=== PATIENT | male | born 1960 | race Caucasian/White ===

== ENCOUNTER 2016-08-07 03:33 | Emergency (ER) | payer MEDICAID, OTHER ==
[~2016-08-07] VITALS: Ht 177.8 cm; Wt 100.0 kg
[~2016-08-07 03:33] MED LIST: DILT60TA33 PO; METO25 PO; SIMV20 PO; WARF6 PO
[2016-08-07 03:35] VITALS: BP 146/83; PULSE 76; RESP 16; TEMP 98.5; O2SAT 100
[2016-08-07] MEDS ORDERED: DILT120T PO (04:00)
[2016-08-07] MEDS ORDERED: ATOR20TA15 PO (04:00)
[2016-08-07] MEDS ORDERED: METO25TA3 PO (04:00)
[2016-08-07] MEDS ORDERED: COUM5TAB PO (04:00)
[2016-08-07] MEDS ORDERED: KETOROLAC TROMETHAMINE 60 MG/2 ML (IM) VIAL IM ONE (04:30)
[2016-08-07] MEDS ORDERED: ORPHENADRINE INJ 60 MG/2 ML AMP IM ONE (04:30)
[2016-08-07] MEDS ORDERED: CYCL1TAB29 PO (04:56)
--- NOTE | 2016-08-07 04:57 | PD ---
HPI Chief Complaint: Back/ Neck Pain or Injury Time Seen by Provider: 04:10 Travel History International Travel<30 days: No Contact w/Intl Traveler<30days: No Traveled to known affect area: No History of Present Illness HPI Patient is a 56-year-old male presenting to the emergency department for evaluation of back pain. Patient states his pain started 2 days ago, he denies any injury or trauma. He states it tightened up while at work. Patient has not taken anything to alleviate the pain, he reports his pain as a 710 and states it's tight and sore. Patient has a history of hyperlipidemia, atrial fibrillation, hypertension. He denies any weakness or numbness in his extremities, no bladder or bowel incontinence, no saddle paresthesia. Patient' s is at bedside. PFSH Past Medical History Hx Anticoagulant Therapy: Yes (warfarin) Atrial Fibrillation: Yes Blood Disorders: No Heart Rhythm Problems: No Cancer: No Cardiac Catheterization: No High Cholesterol: Yes Chest Pain: Yes Congestive Heart Failure: No Cerebrovascular Accident: Yes Diabetes: No Endocrine: No Gastrointestinal Disorders: Yes (CHRONIC CONSTIPATION) Genitourinary: No Hypertension: Yes Immune Disorder: No Kidney Stones: Yes Musculoskeletal: No Neurologic: No Psychiatric: No Reproductive: No Respiratory: No Myocardial Infarction: No Past Surgical History Surgical History: No Previous Surgery AICD: No Arteriovenous Shunt: No Coronary Artery Bypass Graft: No Insulin Pump: No Joint Replacement: No Pacemaker: No Other Surgery: No Social History Alcohol Use: No Tobacco Use: No Substance Use: No Allergies-Medications (Allergen,Severity, Reaction): Coded Allergies: No Known Allergies (Verified , 08/07/16) Reported Meds & Prescriptions Reported Meds & Active Scripts Active Flexeril (Cyclobenzaprine HCl) 10 Mg Tab 10 Mg PO TID PRN 7 Days Reported Metoprolol Tartrate 25 Mg Tab 25 Mg PO BID Diltiazem (Diltiazem HCl) 120 Mg Tab 120 Mg PO DAILY Coumadin (Warfarin) 5 Mg Tab 5.5 Mg PO DAILY Atorvastatin (Atorvastatin Calcium) 20 Mg Tab 20 Mg PO HS Review of Systems Except as stated in HPI: all other systems reviewed are Neg Musculoskeletal: Positive: Myalgias, Cramping Physical Exam Narrative GENERAL: Well-nourished, well-developed patient. SKIN: Focused skin assessment warm/dry. HEAD: Normocephalic. EYES: No scleral icterus. No injection or drainage. NECK: Supple, trachea midline. No JVD or lymphadenopathy. CARDIOVASCULAR: Regular rate and rhythm without murmurs, gallops, or rubs. RESPIRATORY: Breath sounds equal bilaterally. No accessory muscle use. GASTROINTESTINAL: Abdomen soft, non-tender, nondistended. MUSCULOSKELETAL: No cyanosis, or edema. Tenderness to palpation in paraspinal musculature in the lumbar region bilaterally, no spinal tenderness noted, no step-off noted. Full strength in bilateral lower extremities. BACK: Nontender without obvious deformity. No CVA tenderness. Data Data Last Documented VS Vital Signs Date Time Temp Pulse Resp B/P Pulse Ox O2 Delivery O2 Flow Rate FiO2 08/07/16 03:35 98.5 76 16 146/83 100 Room Air Orders Ketorolac Inj (Toradol Inj) (08/07/16 04:30) Orphenadrine Inj (Norflex Inj) (08/07/16 04:30) MDM Medical Decision Making Medical Screen Exam Complete: Yes Emergency Medical Condition: Yes Interpretation(s) Vital Signs Date Time Temp Pulse Resp B/P Pulse Ox O2 Delivery O2 Flow Rate FiO2 08/07/16 03:35 98.5 76 16 146/83 100 Room Air Differential Diagnosis Sprain versus strain versus spasm versus discogenic pain Narrative Course Patient is a 56-year-old male presenting for evaluation of low back pain that started 2 days ago. Patient has not trialed any conservative management prior to coming to the emergency department. Patient's vital signs are stable, he will be given Toradol and Norflex in the emergency department. He was advised that his pain would not be completely alleviated this visit. He he was advised with conservative management his pain should continue to improve over the next several days. He was encouraged to take medications as directed, follow up with his primary doctor. He was advised to alternate heat and ice the affected area, continue range of motion exercises, avoid bed rest, avoid exacerbating activities. Patient and verbalized understanding of these instructions. Patient is stable for discharge. Patient was reassessed prior to discharge at 0500 hrs, he reports improvement in his pain. Diagnosis Primary Impression: Strain of lumbar paraspinous muscle Qualified Code: S39.012A - Strain of lumbar paraspinous muscle, initial encounter Additional Impression: Spasm of lumbar paraspinous muscle Referrals: Primary Care Physician 3 days Patient Instructions: General Instructions, Muscle Spasm (ED), Muscle Strain ( ED) Additional Instructions: Follow-up with your primary doctor Take medications as directed Take [id number] acetaminophen as needed and as directed for pain Apply warm moist heat to the effected area, continue range of motion exercises, avoid bed rest, avoid exacerbating activities Return to emergency department for any new or worsening symptoms Med/Other Pt SpecificInfo: Prescription(s) given Scripts Cyclobenzaprine (Flexeril)10 Mg Tab10 Mg PO TID PRN (MUSCLE SPASM) 7 Days Ref 0 Prov:Sandra Ford 08/07/16 Disposition: 01 DISCHARGE HOME Condition: Stable Sandra Ford Aug 07, 2016 04:57
== END 2016-08-07 06:00 | disposition home or self-care (01) ==
LOC: NEPD 03:33
DX: M62.838 Other muscle spasm (principal); Z79.01 Long term (current) use of anticoagulants; E78.00 Pure hypercholesterolemia, unspecified; I10 Essential (primary) hypertension
CPT/HCPCS: 96372; 99284; J1885; J2360